=== PATIENT | female | born 1980 | race Caucasian/White ===

== ENCOUNTER 2020-09-09 05:34 | Emergency (ER) | payer OTHER ==
[~2020-09-09 05:34] MED LIST: AUGMENTIN 500-500 MG PO; COLACE100 MG PO; MIRTAZAPINE30 MG PO; PERCOCET 5/325 T1 EA PO; ZITHROMAX250 MG PO
[2020-09-09 07:24] LABS: HEMOGLOBIN 13.8 gm/dl (12.3-15.3); RED BLOOD COUNT 4.77 M/UL (4.00-5.10)
[2020-09-09 07:52] LABS: BUN/CREATININE RATIO 21 (0-10)
== END 2020-09-09 07:20 | disposition home or self-care (01) ==
LOC: ER1 05:34
PROVIDERS: Family Medicine
DX: R06.02 Shortness of breath (principal); Q87.40 Marfan syndrome, unspecified; M54.9 Dorsalgia, unspecified; Z20.822 Contact with and (suspected) exposure to COVID-19
CPT/HCPCS: 71045; 80053; 82550; 82553; 83605; 83874; 83880; 84484; 85025; 93005; 99285; U0002

== ENCOUNTER 2020-12-22 18:48 | Emergency (ER) | payer OTHER ==
[2020-12-22 19:58] LABS: HEMOGLOBIN 14.8 gm/dl (12.3-15.3); RED BLOOD COUNT 4.83 M/UL (4.00-5.10); WHITE BLOOD COUNT 6.6 K/UL (4.5-11.0)
[2020-12-22 20:41] LABS: BUN/CREATININE RATIO 18 (0-10)
[2020-12-22] MEDS ORDERED: IBUPROFEN800 MG PO (21:54)
== END 2020-12-22 22:30 | disposition home or self-care (01) ==
LOC: ER1 18:48
PROVIDERS: Family Medicine
DX: R09.1 Pleurisy (principal); F17.200 Nicotine dependence, unspecified, uncomplicated; R06.02 Shortness of breath; R10.811 Right upper quadrant abdominal tenderness
CPT/HCPCS: 71045; 80053; 82550; 82553; 83690; 83874; 84484; 85025; 93005; 96374; 99285; J1885; Q9967

== ENCOUNTER 2021-05-28 10:39 | Emergency (ER) | payer OTHER ==
[~2021-05-28 10:39] MED LIST changes: +IBUPROFEN800 MG PO
[2021-05-28 11:36] LABS: HEMOGLOBIN 16.8 gm/dl (12.3-15.3); RED BLOOD COUNT 5.28 M/UL (4.00-5.10); WHITE BLOOD COUNT 5.1 K/UL (4.5-11.0)
[2021-05-28 12:05] LABS: BUN/CREATININE RATIO 20 (0-10)
[2021-05-28] MEDS ORDERED: DECADRON6 MG PO (13:17)
[2021-05-28] MEDS ORDERED: ZOFRAN ODT 4 MG4 MG PO (13:17)
== END 2021-05-28 13:49 | disposition home or self-care (01) ==
LOC: ER1 10:39
PROVIDERS: Family Medicine
DX: U07.1 COVID-19 (principal); J43.9 Emphysema, unspecified; M54.5 Low back pain; Z87.891 Personal history of nicotine dependence
CPT/HCPCS: 71045; 80053; 81001; 83690; 83735; 85025; 96374; 96375; 99284; J1100; J2405; J7030; U0002

== ENCOUNTER → 2022-01-27 | Outpatient (CLI) | payer OTHER ==
[~2022-01-27] MED LIST changes: +DECADRON6 MG PO; +ZOFRAN ODT 4 MG4 MG PO
[2022-01-27 13:34] LABS: BUN/CREATININE RATIO 25 (0-10)
[2022-01-30 08:18] LABS: ENDOMYSIAL ANTIBODY IGA Negative (Negative); IMMUNOGLOBULIN A, QN, SERUM 155 mg/dL (87-352); T-TRANSGLUTAMINASE (TTG) IGA <2 U/mL (0-3)
== END ==
LOC: LAB 12:47
PROVIDERS: Internal Medicine Gastroenterology
DX: R63.4 Abnormal weight loss (principal); R14.3 Flatulence
CPT/HCPCS: 36415; 74018; 80048; 80076; 82784

== ENCOUNTER → 2022-05-03 | Outpatient (CLI) | payer OTHER | LOC: RAD 16:31 | DX: Z01.818 Encounter for other preprocedural examination (principal) | CPT/HCPCS: 71046 ==

== ENCOUNTER → 2022-05-29 | Outpatient (CLI) | payer OTHER | LOC: HEART 5 10:16 | DX: J44.9 Chronic obstructive pulmonary disease, unspecified (principal) | CPT/HCPCS: 94060; 94729 ==